=== PATIENT | female | born 1980 | race Two or more races ===

== ENCOUNTER 2021-05-06 08:46 | Emergency (ER) | payer MEDICAID ==
[~2021-05-06] VITALS: Ht 157.5 cm; Wt 65.3 kg
--- NOTE | 2021-05-06 09:10 | NUR ---
SENT TO ER BED 10. BIBRA 878 FROM HOME C/O ABDOMINAL PAIN ,NAUSEA/VOMITING/DIARRHEA. AWAITING MD ARELLANO.
--- NOTE | 2021-05-06 09:13 | NUR ---
IV ESTABLISHED L AC 20G. LABS DRAWN AND COLLECTED. CONVERTED TO SALINE LOCK.
[2021-05-06] MEDS ORDERED: ONDANSETRON HCL/PF 4 MG/2 ML VIAL ONE ×2 (09:25→14:16)
[2021-05-06] MEDS ORDERED: ONDANSETRON HCL/PF - ER 4 MG/2 ML VIAL IV ONE ×2 (09:30→14:30)
[2021-05-06] MEDS ORDERED: IV NS 0.9% 1,000 ML IV ONE (09:30)
--- NOTE | 2021-05-06 09:32 | NUR ---
DR WONG AT BEDSIDE
--- NOTE | 2021-05-06 09:40 | NUR ---
PT IS UNALBOE TO PROVIDE URINE SAMPLE AT THIS TIME, ASKED TO TRY IN 30 MINUTES.
[2021-05-06] MEDS ORDERED: PANTOPRAZOLE 40 MG VIAL ONE (09:41)
[2021-05-06] MEDS ORDERED: MORPHINE SULFATE INJ 2 MG/ML DISP.SYRIN ONE ×2 (09:42→14:21)
[2021-05-06 09:59] LABS: BASOPHILS % (AUTO) 0.2 % (0.0-2.0); EOSINOPHILS % (AUTO) 0.1 % (0.0-6.0); HEMATOCRIT 36 % (33-45); HEMOGLOBIN 11.1 g/dL (11.5-14.8); LYMPHOCYTES # (AUTO) 1.2 K/uL (0.8-4.8); LYMPHOCYTES % (AUTO) 9.2 % (20.0-44.0); MEAN CORPUSCULAR HGB CONC 31 g/dl (31.0-36.0); MEAN CORPUSCULAR VOLUME 69 fL (82-100); MONOCYTES # (AUTO) 0.7 K/uL (0.1-1.30); MONOCYTES % (AUTO) 4.8 % (2.0-12.0); NEUTROPHILS # (AUTO) 11.6 K/uL (1.8-8.9); NEUTROPHILS % (AUTO) 85.7 % (43.0-81.0); PLATELET COUNT (AUTO) 450 K/uL (150-450); RED BLOOD CELL COUNT(AUTO) 5.17 MIL/uL (4.0-5.2); WHITE BLOOD COUNT (AUTO) 13.6 K/uL (4.3-11.0)
[2021-05-06] MEDS ORDERED: MORPHINE SULFATE INJ 2 MG/ML DISP.SYRIN IV ONE ×2 (10:00→14:30)
[2021-05-06] MEDS ORDERED: PANTOPRAZOLE 40 MG VIAL IV ONE (10:00)
[2021-05-06 10:12] LABS: ALBUMIN 4.1 g/dL (3.4-5.0); BILIRUBIN,DIRECT 0.1 mg/dL (0.0-0.2); BILIRUBIN,TOTAL 0.6 mg/dL (0.2-1.0); POTASSIUM 3.3 mmol/L (3.5-5.1); TOTAL PROTEIN, SERUM 8.8 g/dL (6.4-8.2)
--- NOTE | 2021-05-06 10:55 | NUR ---
URINE COLLECTED AND SENT
[2021-05-06 11:26] LABS: BILIRUBIN,URINE NEGATIVE (NEGATIVE); COLOR,URINE YELLOW (YELLOW); LEUKOCYTE ESTERASE ,URINE NEGATIVE (NEGATIVE); NITRITE, URINE NEGATIVE (NEGATIVE); PROTEIN,URINE 30 mg/dl (NEGATIVE); UGLUCOSE NEGATIVE (NEGATIVE); UROBILINOGEN,URINE 0.2 EU/dL (0.2)
[2021-05-06 12:22] LABS: WBC,URINE 0-2 /HPF (0-3)
[2021-05-06 12:23] LABS: BACTERIA,URINE Few /HPF (None Seen); SQUAMOUS EPITHELIAL CELL,UR Moderate /HPF (None Seen)
--- NOTE | 2021-05-06 12:51 | NUR ---
test still pending for CT scan. @[id number]
[2021-05-06] MEDS ORDERED: IOHEXOL-300 100 ML VIAL IV ONE (13:07)
[2021-05-06] MEDS ORDERED: IV NS 0.9% 250 ML IV ONE (13:08)
[2021-05-06] MEDS ORDERED: CT SWABBABLE VALVE TRANS SET 1 EA INFUS.SET MC ONE (13:08)
[2021-05-06] MEDS ORDERED: ONDA4TAB5 PO (15:02)
--- NOTE | 2021-05-06 15:21 | NUR ---
IV removed. Catheter intact and site benign. Pressure and 4x4 applied to site. No bleeding noted.Patient discharged to home in stable condition. Written and verbal after care instructions given. Patient verbalizes understanding of instruction.
[2021-05-06 15:22] VITALS: BP 119/77
== END 2021-05-06 15:23 | disposition home or self-care (01) ==
LOC: ER 08:56
DX: R10.817 Generalized abdominal tenderness (principal); R11.2 Nausea with vomiting, unspecified; R19.7 Diarrhea, unspecified; I10 Essential (primary) hypertension; Z85.43 Personal history of malignant neoplasm of ovary; Z79.899 Other long term (current) drug therapy
CPT/HCPCS: 36415; 74177; 80048; 80076; 81001; 83690; 84703; 85025; 96361; 96374; 96375; 96376; 99285; C9113; J2270 ×2; J2405 ×4; J7030; J7050; Q9967

== ENCOUNTER 2022-12-30 16:48 | Emergency (ER) | payer MEDICAID ==
[~2022-12-30] VITALS: Ht 157.5 cm; Wt 60.3 kg
[~2022-12-30 16:48] MED LIST: ONDA4TAB5 PO
[2022-12-30 17:10] VITALS: BP 137/69; TEMP 98.7
[2022-12-30 19:05] VITALS: O2SAT 100
== END 2022-12-30 19:14 | disposition home or self-care (01) ==
LOC: ER 16:48
DX: I27.20 Pulmonary hypertension, unspecified (principal)
CPT/HCPCS: 71045-TC